=== PATIENT | female | born 1985 | race Caucasian/White ===

== ENCOUNTER 2021-06-05 04:05 | Emergency (ER) | payer SELFPAY ==
[~2021-06-05] VITALS: Ht 157.5 cm; Wt 72.6 kg
[2021-06-05 04:05] VITALS: BP 113/75
[2021-06-05 04:41] LABS: Basophils # (auto) 0.1 10 ^3/uL (0-0.2); Basophils % (auto) 0.9 % (0.0-2.0); Eosinophils # (auto) 0.1 10 ^3/uL (0-0.8); Eosinophils % (auto) 0.8 % (0.0-7.0); Hematocrit 37.9 % (36.0-46.0); Hemoglobin 12.9 g/dL (12.2-16.2); Lymphocytes # (auto) 2.1 10 ^3/uL (0.4-5.4); Lymphocytes % (auto) 21.1 % (10.0-50.0); Mean Corpuscular Hemoglobin 29.6 pg (28.0-32.0); Mean Corpuscular Hgb Conc. 34.1 g/dL (32.0-36.0); Mean Corpuscular Volume 86.7 fL (80.0-100.0); Monocytes # (auto) 0.6 10 ^3/uL (0-1.3); Monocytes % (auto) 5.8 % (0.0-12.0); Neutrophils # (auto) 7.2 10 ^3/uL (1.6-8.6); Neutrophils % (auto) 71.4 % (37.0-80.0); Nucleated Red Blood Cells % 0.1 %; Red Blood Cells 4.37 10^6/uL (4.0-5.20); Red Cell Distribution Width 13.4 % (11.8-14.3); White Blood Cell 10.1 10^3/uL (4.4-10.8)
[2021-06-05 04:55] LABS: BUN/Creatinine Ratio 13.3; Calcium 9.4 mg/dL (8.5-10.1); Potassium 3.7 mmol/L (3.5-5.1)
[2021-06-05 04:59] LABS: Bilirubin, Total 0.5 mg/dL (0.2-1.0); Total Protein 8.6 g/dL (6.4-8.2)
[2021-06-05 05:54] LABS: Urine Bacteria FEW /hpf (None Seen); Urine Blood Negative /uL (Negative); Urine Mucus FEW (None Seen); Urine Specific Gravity 1.032 (1.001-1.035); Urine WBC 1 /hpf (0 - 5)
[2021-06-05] MEDS ORDERED: PROMETHAZINE HCL 25 MG/ML 1ML IV PRN (08:30)
[2021-06-05] MEDS ORDERED: SODIUM CHLORIDE 0.9% 1,000 ML IVB ONE (08:30)
[2021-06-05] MEDS ORDERED: ONDANSETRON ODT 4 MG TAB PO ONE (09:00)
== END 2021-06-05 09:06 | disposition left against medical advice (07) ==
LOC: ER 04:05
DX: K52.9 Noninfective gastroenteritis and colitis, unspecified (principal); K90.49 Malabsorption due to intolerance, not elsewhere classified; Z53.29 Procedure and treatment not carried out because of patient's decision for other reasons
CPT/HCPCS: 36415; 80053; 81001; 81025; 85025; 99283; J2550; Q0162